=== PATIENT | male | born 1995 | race Asian ===

== ENCOUNTER 2019-11-29 10:46 | Emergency (ER) | payer OTHER ==
[2019-11-29] MEDS ORDERED: LIDOCAINE 1% MPF 5 ML VIAL ONE (12:03)
--- NOTE | 2019-11-29 12:05 | EDPHYS ---
Physician Documentation [facility] Name: Everett Finney Age: 24 yrs Sex: Male : 1995 Arrival Date: 11/29/2019 Time: 10:49 Bed 23 Private MD: ED Physician Jayden Vu HPI: 11/28 11:49 This 24 yrs old Male presents to ER via Ambulatory with complaints of Ear kb infection. 11:49 The patient or guardian reports the patient has a suspected foreign body, of the ear, kb on the left. The reported likely foreign body is a fishhook. Onset: The symptoms/episode began/occurred today. Current symptoms: foreign body sensation, pain. Treatment Prior to Arrival: none. The patient has not experienced similar symptoms in the past. The patient has not recently seen a physician. Historical: - Allergies: 11:10 PENICILLINS; ca1 - Home Meds: 11:10 None [Active]; ca1 - PMHx: 11:10 None; ca1 - PSHx: 11:10 None; ca1 - Immunization history:: Adult Immunizations up to date, Last tetanus immunization: < 5 years ago. - Social history:: Smoking status: Patient denies any tobacco usage or history of. ROS: 11:47 Constitutional: Negative for fever, chills, and weight loss, Cardiovascular: Negative kb for chest pain, palpitations, and edema, Respiratory: Negative for shortness of breath, cough, wheezing, and pleuritic chest pain, Abdomen/GI: Negative for abdominal pain, nausea, vomiting, diarrhea, and constipation, MS/Extremity: Negative for injury and deformity, Neuro: Negative for headache, weakness, numbness, tingling, and seizure. 11:47 Skin: Positive for of the pinna of left ear, foreign body (fish hook). Exam: 11:47 Constitutional: This is a well developed, well nourished patient who is awake, alert, kb and in no acute distress. Head/Face: Normocephalic, atraumatic. Chest/axilla: Normal chest wall appearance and motion. Nontender with no deformity. No lesions are appreciated. Cardiovascular: Regular rate and rhythm with a normal S1 and S2. No gallops, murmurs, or rubs. Normal PMI, no JVD. No pulse deficits. Respiratory: Lungs have equal breath sounds bilaterally, clear to auscultation and percussion. No rales, rhonchi or wheezes noted. No increased work of breathing, no retractions or nasal flaring. Abdomen/GI: Soft, non-tender, with normal bowel sounds. No distension or tympany. No guarding or rebound. No evidence of tenderness throughout. Back: No spinal tenderness. No costovertebral tenderness. Full range of motion. MS/ Extremity: Pulses equal, no cyanosis. Neurovascular intact. Full, normal range of motion. Neuro: Awake and alert, GCS 15, oriented to person, place, time, and situation. Cranial nerves II-XII grossly intact. Motor strength 5/5 in all extremities. Sensory grossly intact. Cerebellar exam normal. Normal gait. 11:47 Skin: injury, puncture(s), that are superficial, of the pinna of left ear, with fish hook . Vital Signs: 11:07 BP 132 / 91; Pulse 87; Resp 15 S; Temp 97.8(TE); Pulse Ox 100% on R/A; Weight 79.38 kg ca1 (R); Height 5 ft. 8 in. (174 cm) (R); 11:07 Body Mass Index 26.22 (79.38 kg, 174 cm) ca1 Procedures: 12:02 Foreign Body Removal: a fishhook, from the left pinna of left ear, by injected 1.5ml of kb lidocaine without epi into site, hook pushed through skin, greg cut off and hook removed. . Dressing: none, The patient tolerated the removal well. MDM: 11:08 Patient medically screened. kb 11:49 Data reviewed: vital signs, nurses notes. Data interpreted: Pulse oximetry: on room air kb is 100 %. Interpretation: normal. 12:02 Counseling: I had a detailed discussion with the patient and/or guardian regarding: the kb historical points, exam findings, and any diagnostic results supporting the discharge/admit diagnosis, the need for outpatient follow up, a family practitioner, to return to the emergency department if symptoms worsen or persist or if there are any questions or concerns that arise at home. Administered Medications: 12:08 Drug: Lidocaine (1 %) 1 vials Volume: 5 ml; Route: Infiltration; dm5 Disposition: 11/29/19 12:04 Discharged to Home. Impression: Puncture wound with foreign body of left ear. - Condition is Stable. - Discharge Instructions: Puncture Wound, [id number], Foreign Body. - Medication Reconciliation Form, Thank You Letter, Antibiotic Education, Prescription Opioid Use form. - Follow up: Emergency Department; When: As needed; Reason: Worsening of condition. Follow up: Private Physician; When: 2 - 3 days; Reason: Recheck today's complaints, Continuance of care, Re-evaluation by your physician. Addendum: 12/03/2019 16:28 Co-signature as Attending Physician, Jayden Vu MD I agree with the assessment and k dr plan of care. Signatures: Tamera Stockton, WEIGHT REDUCING TECHNICIAN-C WEIGHT REDUCING TECHNICIAN-Ckb Kaur Joiner, RN RN dm5 Jayden Vu MD MD [facility] Leona Red RN RN ss Jeanne Rodrigues RN RN ca1 Corrections: (The following items were deleted from the chart) 11/28 12:25 12:04 11/29/2019 12:04 Discharged to Home. Impression: Puncture wound with foreign body ss of left ear. Condition is Stable. Forms are Medication Reconciliation Form, Thank You Letter, Antibiotic Education, Prescription Opioid Use. Follow up: Emergency Department; When: As needed; Reason: Worsening of condition. Follow up: Private Physician; When: 2 - 3 days; Reason: Recheck today's complaints, Continuance of care, Re-evaluation by your physician. kb
--- NOTE | 2019-11-29 12:05 | ER ---
Nurse's Notes [facility] Name: Everett Finney Age: 24 yrs Sex: Male : 1995 Arrival Date: 11/29/2019 Time: 10:49 Bed 23 Private MD: Diagnosis: Puncture wound with foreign body of left ear Presentation: 11/28 11:07 Chief complaint: Patient states: Fish hook on the L ear about an hour ago. Coronavirus ca1 screen: Proceed with normal triage. Patient denies a cough. Patient denies shortness of breath or difficulty breathing. Patient denies measured and/or subjective temperature greater than 100.4F prior to today's visit. Patient denies travel on a cruise ship or to a country the [facility] currently lists as an affected area. Patient denies contact with known and/or suspected case of COVID-19. Ebola Screen: Patient negative for fever greater than or equal to 101.5 degrees Fahrenheit, and additional compatible Ebola Virus Disease symptoms Patient denies exposure to infectious person. Patient denies travel to an Ebola-affected area in the 21 days before illness onset. No symptoms or risks identified at this time. Initial Sepsis Screen: Does the patient meet any 2 criteria? No. Patient's initial sepsis screen is negative. Does the patient have a suspected source of infection? No. Patient's initial sepsis screen is negative. Risk Assessment: Do you want to hurt yourself or someone else? Patient reports no desire to harm self or others. Onset of symptoms was November 29, 2019. 11:07 Method Of Arrival: Ambulatory ca1 11:07 Acuity: YOLIS 4 ca1 Historical: - Allergies: 11:10 PENICILLINS; ca1 - Home Meds: 11:10 None [Active]; ca1 - PMHx: 11:10 None; ca1 - PSHx: 11:10 None; ca1 - Immunization history:: Adult Immunizations up to date, Last tetanus immunization: < 5 years ago. - Social history:: Smoking status: Patient denies any tobacco usage or history of. Screenin:23 Abuse screen: Denies threats or abuse. Denies injuries from another. Nutritional ss screening: No deficits noted. Tuberculosis screening: Never had TB. Fall Risk None identified. Assessment: 12:00 General: Appears uncomfortable, Behavior is calm, cooperative, Denies fever, feeling ss ill, fatigue, chills. Pain: Complains of pain in pinna of left ear Pain currently is 7 out of 10 on a pain scale. Neuro: Level of Consciousness is awake, alert, obeys commands. Cardiovascular: Capillary refill < 3 seconds is brisk in bilateral fingers. Respiratory: Airway is patent Respiratory effort is even, unlabored, Respiratory pattern is regular, symmetrical. GI: Patient currently denies diarrhea, nausea, vomiting. EENT: Oral mucosa is moist. Derm: Skin is pink, warm \T\ dry. normal. 12:23 Reassessment: Patient appears in no apparent distress at this time. Patient and/or ss family updated on plan of care and expected duration. Pain level reassessed. Patient is alert, oriented x 3, equal unlabored respirations, skin warm/dry/pink. Vital Signs: 11:07 BP 132 / 91; Pulse 87; Resp 15 S; Temp 97.8(TE); Pulse Ox 100% on R/A; Weight 79.38 kg ca1 (R); Height 5 ft. 8 in. (174 cm) (R); 11:07 Body Mass Index 26.22 (79.38 kg, 174 cm) ca1 ED Course: 10:49 Patient arrived in ED. mr 10:55 Tamera Stockton [facility]-C [facility] kb 10:55 Jayden Vu MD is Attending Physician. kb 11:09 Triage completed. ca1 11:10 Arm band placed on right wrist. ca1 11:12 Kaur Joiner RN is Primary Nurse. dm5 12:17 No provider procedures requiring assistance completed. Patient did not have IV access ss during this emergency room visit. 12:23 Patient has correct armband on for positive identification. Bed in low position. Call ss light in reach. Administered Medications: 12:08 Drug: Lidocaine (1 %) 1 vials Volume: 5 ml; Route: Infiltration; dm5 Outcome: 12:04 Discharge ordered by . kb 12:17 Discharged to home ambulatory. ss 12:17 Condition: good 12:17 Discharge instructions given to patient, Instructed on discharge instructions, follow up and referral plans. Demonstrated understanding of instructions, follow-up care, wound care. 12:25 Patient left the ED. ss Signatures: Tamera Stockton FNP-C FNP-Ckb Markwardt, Deana, RN RN dm5 Donnell Nenita mr Mikijocelin, Leona, RN RN ss Acob, Jeanne, RN RN ca1
[2019-11-29 12:30] VITALS: BP 132/91; TEMP 97.8; O2SAT 100
== END 2019-11-29 12:25 | disposition home or self-care (01) ==
LOC: ER 10:46
DX: S01.342A Puncture wound with foreign body of left ear, initial encounter (principal); X58.XXXA Exposure to other specified factors, initial encounter; Y93.9 Activity, unspecified; Y92.9 Unspecified place or not applicable; Z88.0 Allergy status to penicillin
CPT/HCPCS: 99283